=== PATIENT | female | born 1950 | race Caucasian/White ===

== ENCOUNTER 2016-05-04 14:13 | Inpatient (IN) | payer OTHER ==
[~2016-05-04] VITALS: Ht 160 cm; Wt 63.9 kg
[~2016-05-04 14:13] MED LIST: ALBUTEROL SULFATE; AZIT-14 PO; PRED20TA PO; SYMBICORT BC; TIOT18CA INH
[2016-05-04] MEDS ORDERED: SODIUM CHLORIDE FLUSH 10ML SYR IVF ONE (14:30)
[2016-05-04] MEDS ORDERED: CEFTRIAXONE PMX 1GM/50ML 50 ML IVPB ONE (14:30)
[2016-05-04 14:55] LABS: HEMOGLOBIN 10.6 g/dL (11.7-16.4)
[2016-05-04 15:04] LABS: BLOOD UREA NITROGEN 4 mg/dL (7-18)
[2016-05-04] MEDS ORDERED: CEFTRIAXONE PMX 1GM/50ML 50 ML ONE (15:04)
[2016-05-04] MEDS ORDERED: SODIUM CHLORIDE 0.9% 1,000 ML IV ONE (15:09)
[2016-05-04] MEDS ORDERED: MORPHINE SULFATE 4 MG/ML, 1ML IVPush PRN (16:30)
[2016-05-04] MEDS ORDERED: ENOXAPARIN 40 MG/0.4 ML SQ SCH (16:30)
[2016-05-04] MEDS ORDERED: LORazepam 2 MG/ML, 1ML IVPush PRN (16:30)
[2016-05-04] MEDS ORDERED: ONDANSETRON 2MG/ML, 2ML IVP PRN (16:30)
[2016-05-04] MEDS ORDERED: POLYETHYLENE GLYCOL 17 GM PACKET PO PRN (16:30)
[2016-05-04] MEDS ORDERED: ACETAMINOPHEN 325 MG TABLET PO PRN (16:30)
[2016-05-04] MEDS ORDERED: BISACODYL 10 MG SUPP PR PRN (16:30)
[2016-05-04] MEDS ORDERED: DOCUSATE 100 MG CAPSULE PO PRN (16:30)
[2016-05-04] MEDS ORDERED: ALBUTEROL/IPRATROPIUM 2.5MG/0.5MG, 3 ML ONE (16:33)
[2016-05-04 17:01] VITALS: BP 152/80
[2016-05-04] MEDS: HYDROcodone/APAP 5/325 TABLET PO PRN ×2 (17:24→23:06)
[2016-05-04 17:57] LABS: POTASSIUM,URINE RANDOM 11 mmol/L
[2016-05-04 19:39] VITALS: BP 129/82
[2016-05-04] MEDS: ALBUTEROL/IPRATROPIUM 2.5MG/0.5MG, 3 ML NPPB SCH (19:54)
[2016-05-04] MEDS: DOXYCYCLINE 100 MG in DEXTROSE 5% 250 ML IV SCH (21:04)
[2016-05-04] MEDS: NS + 20MEQ KCL 1,000 ML IV SCH (21:04)
[2016-05-05 01:08] VITALS: BP 104/65
[2016-05-05] MEDS: ALBUTEROL/IPRATROPIUM 2.5MG/0.5MG, 3 ML NPPB SCH ×6 (01:40→23:04)
[2016-05-05] MEDS ORDERED: ALBUTEROL/IPRATROPIUM 2.5MG/0.5MG, 3 ML NPPB PRN (03:30)
[2016-05-05] MEDS: HYDROcodone/APAP 5/325 TABLET PO PRN ×2 (03:39→08:15)
[2016-05-05 06:19] LABS: ASPARTATE AMINO TRANSFERASE 19 U/L (15-37); BLOOD UREA NITROGEN 6 mg/dL (7-18)
[2016-05-05] MEDS: methylPREDNISolone SOD SUCC 125 MG/2 ML IV SCH ×3 (06:29→22:27)
[2016-05-05] MEDS: NS + 20MEQ KCL 1,000 ML IV SCH ×2 (06:33→22:27)
[2016-05-05 06:59] VITALS: BP 100/65
[2016-05-05] MEDS: FOLIC ACID 1 MG TABLET PO SCH (08:16)
[2016-05-05] MEDS: MULTIVITAMIN 1 TABLET PO SCH (08:16)
[2016-05-05] MEDS: THIAMINE 100MG TABLET PO SCH (08:16)
[2016-05-05] MEDS: DOXYCYCLINE 100 MG in DEXTROSE 5% 250 ML IV SCH ×2 (08:20→22:27)
[2016-05-05] MEDS: FLUTICASONE/VILANTEROL 200-25MCG/INH INH SCH (09:00)
[2016-05-05] MEDS ORDERED: OMNIPAQUE 350 MG/ML, 75ML BOTTLE ONE (09:52)
[2016-05-05] MEDS ORDERED: PROPOFOL 10 MG/ML, 20ML ONE (10:35)
[2016-05-05] MEDS ORDERED: ONDANSETRON 2MG/ML, 2ML ONE (10:35)
[2016-05-05 12:45] VITALS: BP 125/79
[2016-05-05] MEDS ORDERED: BUPIVACAINE/PF 0.5% ONE (13:19)
[2016-05-05] MEDS ORDERED: BUPIVACAINE/PF 0.25% ONE (13:20)
[2016-05-05] MEDS ORDERED: BUPIVACAINE/PF-EPI 0.5% 1:200K ONE (15:44)
[2016-05-05] MEDS ORDERED: ROPIvacaine/PF 0.5%, 30 ML ONE (15:53)
[2016-05-05] MEDS ORDERED: FENTANYL PF 250 MCG/5ML ONE (16:52)
[2016-05-05] MEDS ORDERED: MIDAZOLAM 1 MG/ML, 2ML ONE (17:08)
[2016-05-05] MEDS ORDERED: FENTANYL PF 100 MCG/2ML ONE ×2 (17:08→18:31)
[2016-05-05] MEDS ORDERED: FENTANYL PF 100 MCG/2ML IV PRN (19:00)
[2016-05-05] MEDS ORDERED: OXYcodone 5 MG/5 ML ORAL.SOL UDC PO PRN (19:00)
[2016-05-05] MEDS ORDERED: HYDROmorphone 1 MG/ML, 1ML IV PRN (19:00)
[2016-05-05] MEDS ORDERED: ONDANSETRON 2MG/ML, 2ML IVPush PRN (19:00)
[2016-05-05] MEDS ORDERED: hydrALAzine 20 MG/ML, 1ML IV PRN (19:00)
[2016-05-05] MEDS ORDERED: LABETALOL 5MG/ML, 20ML IV PRN (19:00)
[2016-05-05] MEDS ORDERED: OXYcodone 5 MG/5 ML ORAL.SOL UDC ONE (19:22)
[2016-05-05 20:00] VITALS: BP 148/85
[2016-05-05] MEDS: CEFAZOLIN PMX 1GM/50ML 50 ML IVPB SCH (20:52)
[2016-05-06] MEDS: HYDROcodone/APAP 5/325 TABLET PO PRN ×6 (00:47→23:38)
[2016-05-06 01:42] VITALS: BP 125/61
[2016-05-06] MEDS: CEFAZOLIN PMX 1GM/50ML 50 ML IVPB SCH (04:57)
[2016-05-06 05:05] LABS: HEMOGLOBIN 8.6 g/dL (11.7-16.4)
[2016-05-06 05:17] LABS: BLOOD UREA NITROGEN 12 mg/dL (7-18)
[2016-05-06] MEDS: methylPREDNISolone SOD SUCC 125 MG/2 ML IV SCH (06:18)
[2016-05-06] MEDS: ALBUTEROL/IPRATROPIUM 2.5MG/0.5MG, 3 ML NPPB SCH ×4 (06:49→19:56)
[2016-05-06 07:14] VITALS: BP 152/78
[2016-05-06] MEDS: NS + 20MEQ KCL 1,000 ML IV SCH (08:00)
[2016-05-06] MEDS: DOXYCYCLINE 100 MG in DEXTROSE 5% 250 ML IV SCH (10:00)
[2016-05-06] MEDS ORDERED: ERGOCALCIFEROL 50,000 UNIT CAPSULE PO SCH (10:30)
[2016-05-06] MEDS: FLUTICASONE/VILANTEROL 200-25MCG/INH INH SCH (10:57)
[2016-05-06] MEDS: THIAMINE 100MG TABLET PO SCH (10:57)
[2016-05-06] MEDS: FOLIC ACID 1 MG TABLET PO SCH (10:57)
[2016-05-06] MEDS: MULTIVITAMIN 1 TABLET PO SCH (10:57)
[2016-05-06] MEDS: ENOXAPARIN 40 MG/0.4 ML SQ SCH (11:12)
[2016-05-06] MEDS: CYANOCOBALAMIN 1,000 MCG TABLET PO SCH (11:13)
[2016-05-06 13:21] VITALS: BP 106/66
[2016-05-06] MEDS: DOXYCYCLINE 100MG TABLET PO SCH (19:51)
[2016-05-06 20:00] VITALS: BP 157/78
[2016-05-07 01:07] VITALS: BP 135/76
[2016-05-07] MEDS: HYDROcodone/APAP 5/325 TABLET PO PRN ×4 (03:35→16:46)
[2016-05-07 05:41] LABS: HEMOGLOBIN 8.7 g/dL (11.7-16.4)
[2016-05-07 06:13] LABS: BLOOD UREA NITROGEN 10 mg/dL (7-18)
[2016-05-07] MEDS: ALBUTEROL/IPRATROPIUM 2.5MG/0.5MG, 3 ML NPPB SCH ×4 (06:42→19:08)
[2016-05-07 06:54] VITALS: BP 118/68
[2016-05-07] MEDS: THIAMINE 100MG TABLET PO SCH (07:51)
[2016-05-07] MEDS: CYANOCOBALAMIN 1,000 MCG TABLET PO SCH (07:51)
[2016-05-07] MEDS: DOXYCYCLINE 100MG TABLET PO SCH (07:52)
[2016-05-07] MEDS: MULTIVITAMIN 1 TABLET PO SCH (07:52)
[2016-05-07] MEDS: FLUTICASONE/VILANTEROL 200-25MCG/INH INH SCH (07:52)
[2016-05-07] MEDS: FOLIC ACID 1 MG TABLET PO SCH (07:52)
[2016-05-07] MEDS: ENOXAPARIN 40 MG/0.4 ML SQ SCH (11:25)
[2016-05-07 13:29] VITALS: BP 103/70
[2016-05-07] MEDS ORDERED: PRED20TA PO (13:54)
[2016-05-07] MEDS ORDERED: MULT1TAB60 PO (13:54)
[2016-05-07] MEDS ORDERED: ERGO500017 PO (13:54)
[2016-05-07] MEDS ORDERED: CYAN10005 PO (13:54)
[2016-05-07] MEDS ORDERED: HYDR-3240 PO (13:54)
[2016-05-07] MEDS ORDERED: ACET325T14 PO (13:54)
[2016-05-07] MEDS ORDERED: DOXY100T PO (13:54)
[2016-05-07] MEDS ORDERED: FOLI-17 PO (13:54)
[2016-05-07] MEDS ORDERED: THIA100T6 PO (13:54)
[2016-05-07 18:35] VITALS: BP 161/89
== END 2016-05-08 01:55 | DRG 493 ==
LOC: ED 15:14 → 4WST 15:15 → SUATTDRO 15:24 → ED 16:09
PROC: 0T9B70Z Drainage of Bladder with Drainage Device, Via Natural or Artificial Opening (ICD-10-PCS; 2016-05-04)
PROC: HZ34ZZZ Individual Counseling for Substance Abuse Treatment, Interpersonal (ICD-10-PCS; 2016-05-04)
PROC: HZ2ZZZZ Detoxification Services for Substance Abuse Treatment (ICD-10-PCS; 2016-05-04)
PROC: 0QSG3ZZ Reposition Right Tibia, Percutaneous Approach (ICD-10-PCS; 2016-05-05)
PROC: 0QSJ04Z Reposition Right Fibula with Internal Fixation Device, Open Approach (ICD-10-PCS; principal; 2016-05-05 15:30)
DX: S82.851A Displaced trimalleolar fracture of right lower leg, initial encounter for closed fracture (principal); J44.1 Chronic obstructive pulmonary disease with (acute) exacerbation; E87.1 Hypo-osmolality and hyponatremia; J96.10 Chronic respiratory failure, unspecified whether with hypoxia or hypercapnia; J45.909 Unspecified asthma, uncomplicated; F10.10 Alcohol abuse, uncomplicated; D64.9 Anemia, unspecified; W18.30XA Fall on same level, unspecified, initial encounter; M06.9 Rheumatoid arthritis, unspecified; E55.9 Vitamin D deficiency, unspecified; R91.1 Solitary pulmonary nodule; Z87.891 Personal history of nicotine dependence; Z88.2 Allergy status to sulfonamides; Z99.81 Dependence on supplemental oxygen; Z90.710 Acquired absence of both cervix and uterus; Z82.49 Family history of ischemic heart disease and other diseases of the circulatory system; Z80.41 Family history of malignant neoplasm of ovary; Z71.6 Tobacco abuse counseling; Z71.41 Alcohol abuse counseling and surveillance of alcoholic; E86.0 Dehydration
CPT/HCPCS: 29515; 36415; 70450; 71010; 71260; 76000; 80048; 80053; 80307; 81003; 82040; 82306; 82436; 82607; 83605; 83735; 83930; 84100; 84133; 84295; 84300; 84439; 84443; 85025; 87040; 87070; 87077; 87186; 87205; 93005; 94640; 96365; C1713; J0690; J0696; J1650; J2250; J2405; J2704; J2795; J3010; J3480; J3490; J7060; J7620; Q9967; J2060; J2930; J7030; J7512

== ENCOUNTER 2018-02-11 12:36 | Inpatient (IN) | payer MEDICARE ==
[~2018-02-11] VITALS: Ht 160 cm; Wt 64.1 kg
[~2018-02-11 12:36] MED LIST changes: +ACET325T14 PO; -AZIT-14 PO; +AZIT250T89 PO; +CYAN10005 PO; +DOXY100T PO; +ERGO500017 PO; +FOLI-17 PO; +HYDR-3240 PO; +MULT1TAB60 PO; +THIA100T67 PO
--- NOTE | 2018-02-11 12:45 | NUR ---
BIB AMBULANCE FOR SOB AND EDEMA FOR SEVERAL WEEKS, WORSENING TODAY, PT COMPLETED 5 DAYS OF TREATMENT WITH LASIX AND POTASSIUM FROM PCP THIS MORNING. "I JUST CAN'T BREATHE WELL, AND I'M COUGHING UP STUFF, I USE OXYGEN ALL THE TIME, 3L, AND MY LEGS AND STOMACH ARE JUST GETTING MORE SWOLLEN." CONT PULSE OX, BP, CARDIAC MONITORS APPLIED. ST ON MONITOR. PT HYPOTENSIVE, REPORTS "MY BLOOD PRESSURE IS ALWAYS LOW." DR. CHATTERJEE AT BEDSIDE FOR EVALUATION, AWAITING ORDERS. PITTING EDEMA NOTED TO BLE. ABD FIRM AND DISTENDED, BOWEL SOUNDS ACTIVE. ASSESSMENT COMPLETED. A&OX4. FALL PRECAUTIONS IN PLACE. SIDE RAILS UPX2. WARM BLANKET PROVIDED FOR COMFORT.
[2018-02-11] MEDS ORDERED: SODIUM CHLORIDE FLUSH 10ML SYR IVF ONE (13:00)
[2018-02-11] MEDS ORDERED: PLEASE ENTER HEIGHT AND WEIGHT MC SCH (13:00)
--- NOTE | 2018-02-11 13:10 | NUR ---
DISCUSSED BP WITH DR. CHATTERJEE, AWARE, NO NEW ORDERS RECEIVED. AWAITING LAB RESULTS THEN MD TO RE-ASSESS PT.
[2018-02-11 13:20] LABS: MEAN CORPUSCULAR HEMOGLOBIN 22.4 pg (27.0-34.8); MEAN CORPUSCULAR HGB CONC 30.4 g/dL (32.4-35.8); MEAN CORPUSCULAR VOLUME 73.4 fL (80-100); MEAN PLATELET VOLUME 8.1 fL (7.4-10.4); PLATELET COUNT 749 x10^3/uL (130-400); RED BLOOD COUNT 3.24 x10^6/uL (3.82-5.3); RED CELL DISTRIBUTION WIDTH 18.9 % (9.6-15.2)
[2018-02-11 13:25] LABS: INTERNATIONAL NORMALIZED RATIO 1.26 (0.93-1.1); PROTHROMBIN TIME 13.2 Seconds (9.6-11.5)
[2018-02-11 13:26] LABS: ALANINE AMINOTRANSFERASE 17 U/L (12-78); ALBUMIN 1.4 g/dL (3.4-5.0); ANION GAP 3 mmol/L (5-15); CALCIUM 7.7 mg/dL (8.5-10.1); CHLORIDE 96 mmol/L (98-107)
--- NOTE | 2018-02-11 13:29 | NUR ---
BEDSIDE REPORT AND CARE TO ARNOL GOODEN AT THIS TIME.
[2018-02-11 13:30] LABS: ALKALINE PHOSPHATASE 124 U/L (45-117); BILIRUBIN,TOTAL 0.2 mg/dL (0.2-1.0); CREATININE 0.58 mg/dL (0.55-1.02); TOTAL PROTEIN 8.8 g/dL (6.4-8.2); TROPONIN I < 0.015 ng/mL (0.000-0.045)
[2018-02-11] MEDS ORDERED: FLUT1AER INH (13:46)
[2018-02-11] MEDS ORDERED: ALBU8.5H8 INH (13:46)
[2018-02-11] MEDS ORDERED: UMEC62.5 INH (13:46)
[2018-02-11] MEDS ORDERED: OMNIPAQUE 350 MG/ML, 100ML BOTTLE ONE (14:00)
[2018-02-11] MEDS ORDERED: FUROSEMIDE 20 MG/2 ML IV ONE (14:00)
[2018-02-11] MEDS ORDERED: FUROSEMIDE 20 MG/2 ML ONE (14:14)
--- NOTE | 2018-02-11 14:18 | NUR ---
[facility] MEDIC[facility] PER APR.
--- NOTE | 2018-02-11 14:19 | NUR ---
ERP DR. PRATT AWARE OF PT WBC 18.4
--- NOTE | 2018-02-11 14:44 | NUR ---
ERP AT BEDSIDE TO DISCUSS POC AND ADMIT.
--- NOTE | 2018-02-11 14:45 | NUR ---
PER ERP DR. PRATT NO NEED FOR BC X2 OR ANTX AT THIS TIME.
[2018-02-11 14:46] LABS: BASOPHILS % (AUTO) 0 % (0-1); EOSINOPHILS # (AUTO) 0.02 x10^3/uL (0-0.4); EOSINOPHILS % (AUTO) 0 % (1-7); LYMPHOCYTES # (AUTO) 1.61 x10^3/uL (1-3.4); LYMPHOCYTES % (AUTO) 9 % (22-44); MD MORPH REVIEW ONLY; MONOCYTES # (AUTO) 2.66 x10^3/uL (0.2-0.8); MONOCYTES % (AUTO) 14 % (2-9); NEUTROPHILS # (AUTO) 14.14 x10^3/uL (1.8-6.8); NEUTROPHILS % (AUTO) 77 % (42-75)
[2018-02-11 14:47] LABS: ANISOCYTOSIS 1+; HYPOCHROMIA 1+; MICROCYTOSIS 1+; POLYCHROMASIA 1+; ROULEAUX 1+
[2018-02-11 14:48] LABS: <PLATELET ESTIMATE> INCREASED; <PLT MORPHOLOGY> NORMAL PLT MORPH
[2018-02-11 15:58] LABS: MICROSCOPIC AUTO
--- NOTE | 2018-02-11 15:59 | NUR ---
REPORT GIVEN TO LAVERNE SAENZ RN. ALL QUESTIONS ANSWERED. AWAITING PT TRANSPORT.
[2018-02-11 16:02] LABS: CULTURE INDICATED? YES
--- NOTE | 2018-02-11 16:27 | NUR ---
PT CHANGED TO CARD TELE. AWAITING NEW BED ASSIGNMENT AND RN.
[2018-02-11] MEDS ORDERED: LABETALOL 5MG/ML, 20ML IVPush PRN (16:30)
[2018-02-11] MEDS ORDERED: POLYETHYLENE GLYCOL 17 GM PACKET PO PRN (16:30)
[2018-02-11] MEDS ORDERED: ONDANSETRON ODT 4 MG PO PRN (16:30)
[2018-02-11] MEDS ORDERED: ONDANSETRON 2MG/ML, 2ML IVPush PRN (16:30)
--- NOTE | 2018-02-11 16:32 | NUR ---
SPOKE W/ CARDIOVASCULAR. THEY WILL BE DOWN TO DO STAT ECHO PER DR. REGALADO REQUEST. PER DR. FABRICIO MAURICE FOR PT TO HAVE CARDIAC DIET. DIET TRAY ORDERED.
--- NOTE | 2018-02-11 16:44 | NUR ---
ECHO AT BEDSIDE.
[2018-02-11 16:55] LABS: HEMOGLOBIN A1C 5.4 % (4.2-6.3)
[2018-02-11 16:57] LABS: CHOL/HDL RATIO 8.1; FREE T4 (FREE THYROXINE) 1.13 ng/dL (0.76-1.46); LDL/HDL RATIO 5.1 (0.5-3.0); THYROID STIMULATING HORMONE 2.2 mIU/L (0.358-3.740)
--- NOTE | 2018-02-11 17:23 | NUR ---
PT PROVIDED W/ CARDIAC DINNER TRAY.
--- NOTE | 2018-02-11 17:37 | NUR ---
YELLOW SLIP SENT TO RX FOR ALBUMIN AND BANANA BAG.
[2018-02-11] MEDS ORDERED: PIPERACILLIN/TAZO/PMX 3.375GM 50 ML ONE (17:38)
[2018-02-11] MEDS ORDERED: methylPREDNISolone SOD SUCC 125 MG/2 ML ONE (17:38)
[2018-02-11] MEDS: PIPERACILLIN/TAZO/PMX 3.375GM 50 ML IV SCH (17:49)
[2018-02-11] MEDS: methylPREDNISolone SOD SUCC 125 MG/2 ML IVPush SCH (17:49)
--- NOTE | 2018-02-11 17:50 | NUR ---
BC X2 DRAWN PRIOR TO START OF IV ANTX.
[2018-02-11] MEDS ORDERED: ERGOCALCIFEROL 50,000 UNIT CAPSULE PO SCH (18:00)
[2018-02-11] MEDS ORDERED: THIAMINE 100MG TABLET PO SCH (18:00)
[2018-02-11] MEDS ORDERED: FOLIC ACID 1 MG TABLET PO SCH (18:00)
[2018-02-11] MEDS ORDERED: POTASSIUM CHLORIDE 20 MEQ, MAGNESIUM SULFATE 1 GM, FOLIC ACID 1 MG, THIAMINE 200 MG, MV... IV SCH (18:00)
[2018-02-11] MEDS: ALBUMIN HUMAN 25% 100 ML IV SCH (18:26)
--- NOTE | 2018-02-11 18:36 | NUR ---
PT RESTING ON GURNEY. NADN. PÉREZ.
--- NOTE | 2018-02-11 18:50 | NUR ---
REPORT GIVEN TO LAVERNE MERAZ. ALL QUESTIONS ANSWERED. AWAITING PT TRANSPORT.
[2018-02-11] MEDS: ALBUTEROL/IPRATROPIUM 2.5MG/0.5MG, 3 ML HHN SCH (19:30)
[2018-02-11 19:40] VITALS: BP 109/62
[2018-02-11] MEDS ORDERED: BUDESONIDE 0.5 MG/2 ML INHA NPPB SCH (21:00)
[2018-02-11] MEDS: BUDESONIDE 0.5 MG/2 ML INHA NPPB SCH (21:00)
[2018-02-11] MEDS ORDERED: ALBUTEROL/IPRATROPIUM 2.5MG/0.5MG, 3 ML NPPB PRN (21:00)
[2018-02-11] MEDS ORDERED: ALBUTEROL/IPRATROPIUM 2.5MG/0.5MG, 3 ML NPPB SCH (21:00)
[2018-02-11] MEDS: MULTIVITAMIN 1 TABLET PO SCH (21:10)
[2018-02-11] MEDS: DIPHENHYDRAMINE 50 MG CAPSULE PO PRN (22:35)
[2018-02-11] MEDS: NICOTINE 21 MG/24 HR PATCH.TD24 TD SCH (22:35)
[2018-02-12] VITALS (11 sets, daily range): BP systolic 94–122; BP diastolic 61–76
[2018-02-12] MEDS: methylPREDNISolone SOD SUCC 125 MG/2 ML IVPush SCH ×4 (00:19→18:19)
[2018-02-12] MEDS: PIPERACILLIN/TAZO/PMX 3.375GM 50 ML IV SCH ×4 (00:19→18:19)
[2018-02-12] MEDS: ALBUTEROL/IPRATROPIUM 2.5MG/0.5MG, 3 ML HHN SCH ×5 (01:30→20:07)
[2018-02-12] MEDS: ALBUMIN HUMAN 25% 100 ML IV SCH ×4 (01:41→23:07)
[2018-02-12 05:13] LABS: ANION GAP 4 mmol/L (5-15); CALCIUM 7.9 mg/dL (8.5-10.1); CHLORIDE 97 mmol/L (98-107)
[2018-02-12 05:18] LABS: ALANINE AMINOTRANSFERASE 17 U/L (12-78); ALKALINE PHOSPHATASE 105 U/L (45-117); BILIRUBIN,TOTAL 0.7 mg/dL (0.2-1.0); CREATININE 0.66 mg/dL (0.55-1.02); TOTAL PROTEIN 8.4 g/dL (6.4-8.2)
[2018-02-12 05:22] LABS: MEAN CORPUSCULAR HEMOGLOBIN 22.6 pg (27.0-34.8); MEAN CORPUSCULAR HGB CONC 31.1 g/dL (32.4-35.8); MEAN CORPUSCULAR VOLUME 72.6 fL (80-100); MEAN PLATELET VOLUME 8.3 fL (7.4-10.4); PLATELET COUNT 667 x10^3/uL (130-400); RED BLOOD COUNT 2.87 x10^6/uL (3.82-5.3)
[2018-02-12 06:10] LABS: ANISOCYTOSIS 1+; BASOPHILS % (AUTO) 0 % (0-1); EOSINOPHILS # (AUTO) 0.25 x10^3/uL (0-0.4); EOSINOPHILS % (AUTO) 1 % (1-7); HYPOCHROMIA 1+; LYMPHOCYTES % (AUTO) 11 % (22-44); MD MORPH REVIEW ONLY; MICROCYTOSIS 1+; MONOCYTES # (AUTO) 0.74 x10^3/uL (0.2-0.8); MONOCYTES % (AUTO) 4 % (2-9); NEUTROPHILS # (AUTO) 14.61 x10^3/uL (1.8-6.8); NEUTROPHILS % (AUTO) 83 % (42-75); POLYCHROMASIA 1+; TARGET CELLS 1+
[2018-02-12 06:11] LABS: <PLATELET ESTIMATE> INCREASED; <PLT MORPHOLOGY> NORMAL PLT MORPH
[2018-02-12] MEDS ORDERED: POTASSIUM CHLORIDE 20 MEQ, MAGNESIUM SULFATE 1 GM, FOLIC ACID 1 MG, THIAMINE 200 MG, MV... IV SCH (07:30)
[2018-02-12] MEDS: BUDESONIDE 0.5 MG/2 ML INHA NPPB SCH ×2 (07:33→20:07)
[2018-02-12] MEDS ORDERED: TEMPLATE NON-FORMULARY MED. (Tiotropium Bromide** (Spiriva**) 18 MCG) INH SCH (09:00)
[2018-02-12] MEDS ORDERED: FLUTICASONE/VILANTEROL 100-25MCG/INH INH SCH (09:00)
[2018-02-12] MEDS ORDERED: OMNIPAQUE 350 MG/ML, 100ML BOTTLE ONE (10:05)
[2018-02-12] MEDS: PANTOPRAZOLE 40 MG IV IVPush SCH (10:31)
[2018-02-12] MEDS: SENNA/DOCUSATE TABLET PO SCH (10:34)
[2018-02-12] MEDS: NICOTINE 21 MG/24 HR PATCH.TD24 TD SCH (10:34)
[2018-02-12] MEDS ORDERED: NALOXONE 1 MG/ML, 2ML ONE (10:58)
[2018-02-12] MEDS ORDERED: FENTANYL PF 100 MCG/2ML ONE (10:58)
[2018-02-12] MEDS ORDERED: LIDOCAINE-MPF 1%, 5ML ONE ×2 (11:02→11:13)
[2018-02-12 14:21] LABS: OCCULT BLOOD NEGATIVE (NEGATIVE)
[2018-02-12] MEDS: MULTIVITAMIN 1 TABLET PO SCH (18:19)
[2018-02-13 00:04] VITALS: BP 129/78
[2018-02-13] MEDS: PIPERACILLIN/TAZO/PMX 3.375GM 50 ML IV SCH ×5 (00:07→23:57)
[2018-02-13] MEDS: DIPHENHYDRAMINE 50 MG CAPSULE PO PRN (00:08)
[2018-02-13] MEDS: methylPREDNISolone SOD SUCC 125 MG/2 ML IVPush SCH ×2 (00:08→06:02)
[2018-02-13 03:07] VITALS: BP 151/75
[2018-02-13 03:55] LABS: MEAN CORPUSCULAR HEMOGLOBIN 25.1 pg (27.0-34.8); MEAN CORPUSCULAR HGB CONC 32.1 g/dL (32.4-35.8); MEAN CORPUSCULAR VOLUME 78.1 fL (80-100); MEAN PLATELET VOLUME 8.1 fL (7.4-10.4); PLATELET COUNT 522 x10^3/uL (130-400); RED BLOOD COUNT 3.45 x10^6/uL (3.82-5.3); RED CELL DISTRIBUTION WIDTH 20.5 % (9.6-15.2)
[2018-02-13 04:04] LABS: ALANINE AMINOTRANSFERASE 15 U/L (12-78); ALBUMIN 2.7 g/dL (3.4-5.0); ANION GAP 4 mmol/L (5-15); CALCIUM 8.2 mg/dL (8.5-10.1); CHLORIDE 98 mmol/L (98-107)
[2018-02-13 04:07] LABS: ALKALINE PHOSPHATASE 86 U/L (45-117); BILIRUBIN,TOTAL 0.5 mg/dL (0.2-1.0); CREATININE 0.66 mg/dL (0.55-1.02); TOTAL PROTEIN 8.5 g/dL (6.4-8.2)
[2018-02-13 04:11] LABS: O2 FLOW 3 L/min
[2018-02-13 04:17] LABS: MD YES
[2018-02-13 04:18] LABS: ANISOCYTOSIS 1+; BAND#(MANUAL) 0.89 x10^3/uL; BANDS%(MANUAL) 3 % (0-7); HYPOCHROMIA 1+; LYMPH#(MANUAL) 1.78 x10^3/uL (1-3.4); LYMPHS% (MANUAL) 6 % (22-44); MICROCYTOSIS 1+; MONOS#(MANUAL) 2.96 x10^3/uL (0.3-2.7); MONOS% (MANUAL) 10 % (2-9); POLYCHROMASIA 1+; SEG#(MANUAL) 23.98 x10^3/uL (1.8-6.8); SEGS% (MANUAL) 81 % (42-75)
[2018-02-13 04:19] LABS: TARGET CELLS 1+
[2018-02-13 04:21] LABS: <PLATELET ESTIMATE> INCREASED; <PLT MORPHOLOGY> NORMAL PLT MORPH
[2018-02-13] MEDS ORDERED: FUROSEMIDE 20 MG/2 ML IV ONE (05:00)
[2018-02-13] MEDS ORDERED: POTASSIUM CHLORIDE 20 MEQ TAB.ER.PRT PO ONE (05:00)
[2018-02-13 05:14] VITALS: BP 128/77
[2018-02-13] MEDS: ALBUMIN HUMAN 25% 100 ML IV SCH (05:17)
[2018-02-13 07:59] VITALS: BP 129/74
[2018-02-13] MEDS: PANTOPRAZOLE 40 MG IV IVPush SCH (09:49)
[2018-02-13] MEDS: FUROSEMIDE 20 MG/2 ML IV SCH (09:50)
[2018-02-13] MEDS: NICOTINE 21 MG/24 HR PATCH.TD24 TD SCH (09:51)
[2018-02-13] MEDS: SENNA/DOCUSATE TABLET PO SCH (09:51)
[2018-02-13] MEDS: ALBUTEROL/IPRATROPIUM 2.5MG/0.5MG, 3 ML HHN SCH ×4 (09:55→20:23)
[2018-02-13] MEDS: BUDESONIDE 0.5 MG/2 ML INHA NPPB SCH ×2 (09:55→20:23)
[2018-02-13] MEDS: FOLIC ACID 1 MG TABLET PO SCH (12:00)
[2018-02-13] MEDS: THIAMINE 100MG TABLET PO SCH (12:01)
[2018-02-13 14:45] VITALS: BP 123/70
[2018-02-13] MEDS: MULTIVITAMIN 1 TABLET PO SCH (17:48)
[2018-02-13 20:40] VITALS: BP 151/82
[2018-02-13] MEDS: HYDROcodone/APAP 5/325 TABLET PO PRN (21:21)
[2018-02-14 01:27] VITALS: BP 118/69
[2018-02-14] MEDS: ALBUTEROL/IPRATROPIUM 2.5MG/0.5MG, 3 ML HHN SCH ×4 (03:10→18:35)
[2018-02-14] MEDS: PIPERACILLIN/TAZO/PMX 3.375GM 50 ML IV SCH ×2 (06:27→10:50)
[2018-02-14 07:22] VITALS: BP 110/67
[2018-02-14] MEDS: BUDESONIDE 0.5 MG/2 ML INHA NPPB SCH ×3 (07:40→18:45)
[2018-02-14 08:46] LABS: MEAN CORPUSCULAR HEMOGLOBIN 24.6 pg (27.0-34.8); MEAN CORPUSCULAR HGB CONC 31.4 g/dL (32.4-35.8); MEAN CORPUSCULAR VOLUME 78.4 fL (80-100); PLATELET COUNT 563 x10^3/uL (130-400); RED BLOOD COUNT 3.96 x10^6/uL (3.82-5.3)
[2018-02-14 08:53] LABS: ALANINE AMINOTRANSFERASE 13 U/L (12-78); ALBUMIN 2.5 g/dL (3.4-5.0); ANION GAP 4 mmol/L (5-15); CALCIUM 8.3 mg/dL (8.5-10.1); CHLORIDE 99 mmol/L (98-107); CREATININE 0.53 mg/dL (0.55-1.02)
[2018-02-14 08:55] LABS: ALKALINE PHOSPHATASE 84 U/L (45-117); BILIRUBIN,TOTAL 0.6 mg/dL (0.2-1.0); TOTAL PROTEIN 8.2 g/dL (6.4-8.2)
[2018-02-14] MEDS: SENNA/DOCUSATE TABLET PO SCH (09:00)
[2018-02-14 09:10] LABS: BASOPHILS # (AUTO) 0.07 x10^3/uL (0-0.1); BASOPHILS % (AUTO) 0 % (0-1); EOSINOPHILS # (AUTO) 0.25 x10^3/uL (0-0.4); EOSINOPHILS % (AUTO) 1 % (1-7); LYMPHOCYTES # (AUTO) 2.56 x10^3/uL (1-3.4); LYMPHOCYTES % (AUTO) 9 % (22-44); MD SCAN; MONOCYTES # (AUTO) 4.41 x10^3/uL (0.2-0.8); MONOCYTES % (AUTO) 16 % (2-9); NEUTROPHILS % (AUTO) 73 % (42-75)
[2018-02-14] MEDS: THIAMINE 100MG TABLET PO SCH (09:24)
[2018-02-14] MEDS: FOLIC ACID 1 MG TABLET PO SCH (09:24)
[2018-02-14] MEDS: FUROSEMIDE 20 MG/2 ML IV SCH (09:25)
[2018-02-14] MEDS: PANTOPRAZOLE 40 MG IV IVPush SCH (09:25)
[2018-02-14] MEDS: NICOTINE 21 MG/24 HR PATCH.TD24 TD SCH (09:26)
[2018-02-14] MEDS: HYDROcodone/APAP 5/325 TABLET PO PRN ×2 (10:49→18:33)
[2018-02-14 12:54] VITALS: BP 168/78
[2018-02-14] MEDS: MULTIVITAMIN 1 TABLET PO SCH (18:33)
[2018-02-14] MEDS: PIPERACILLIN/TAZO 3.375 GM in DEXTROSE 5% 50 ML IV SCH (18:37)
[2018-02-14 20:21] VITALS: BP 119/69
[2018-02-15] MEDS: ALBUTEROL/IPRATROPIUM 2.5MG/0.5MG, 3 ML HHN SCH ×5 (00:25→20:41)
[2018-02-15] MEDS: PIPERACILLIN/TAZO 3.375 GM in DEXTROSE 5% 50 ML IV SCH ×4 (00:27→18:03)
[2018-02-15] MEDS: HYDROcodone/APAP 5/325 TABLET PO PRN ×3 (01:01→20:52)
[2018-02-15 03:59] VITALS: BP 109/72
[2018-02-15 04:59] VITALS: BP 109/72
[2018-02-15 05:17] LABS: MEAN CORPUSCULAR HEMOGLOBIN 24.7 pg (27.0-34.8); MEAN CORPUSCULAR HGB CONC 31.5 g/dL (32.4-35.8); MEAN CORPUSCULAR VOLUME 78.6 fL (80-100); MEAN PLATELET VOLUME 8.3 fL (7.4-10.4); PLATELET COUNT 485 x10^3/uL (130-400); RED BLOOD COUNT 3.64 x10^6/uL (3.82-5.3); RED CELL DISTRIBUTION WIDTH 22.8 % (9.6-15.2)
[2018-02-15 05:25] LABS: ALBUMIN 2.2 g/dL (3.4-5.0); ANION GAP 2 mmol/L (5-15); CALCIUM 8.1 mg/dL (8.5-10.1); CHLORIDE 98 mmol/L (98-107)
[2018-02-15 05:47] LABS: ALANINE AMINOTRANSFERASE 12 U/L (12-78); ALKALINE PHOSPHATASE 72 U/L (45-117); BILIRUBIN,TOTAL 0.5 mg/dL (0.2-1.0); CREATININE 0.56 mg/dL (0.55-1.02); TOTAL PROTEIN 7.4 g/dL (6.4-8.2)
[2018-02-15 06:00] LABS: BASOPHILS # (AUTO) 0.03 x10^3/uL (0-0.1); BASOPHILS % (AUTO) 0 % (0-1); EOSINOPHILS # (AUTO) 0.38 x10^3/uL (0-0.4); EOSINOPHILS % (AUTO) 2 % (1-7); LYMPHOCYTES # (AUTO) 2.43 x10^3/uL (1-3.4); LYMPHOCYTES % (AUTO) 10 % (22-44); MD SCAN; MONOCYTES # (AUTO) 3.69 x10^3/uL (0.2-0.8); MONOCYTES % (AUTO) 15 % (2-9); NEUTROPHILS # (AUTO) 17.53 x10^3/uL (1.8-6.8); NEUTROPHILS % (AUTO) 73 % (42-75)
[2018-02-15 08:23] VITALS: BP 105/62
[2018-02-15] MEDS: THIAMINE 100MG TABLET PO SCH (09:09)
[2018-02-15] MEDS: FOLIC ACID 1 MG TABLET PO SCH (09:09)
[2018-02-15] MEDS: SENNA/DOCUSATE TABLET PO SCH (09:09)
[2018-02-15] MEDS: NICOTINE 21 MG/24 HR PATCH.TD24 TD SCH (09:09)
[2018-02-15] MEDS: PANTOPRAZOLE 40 MG IV IVPush SCH (09:09)
[2018-02-15] MEDS: FUROSEMIDE 20 MG/2 ML IV SCH (09:10)
[2018-02-15] MEDS ORDERED: POTASSIUM CHLORIDE 20 MEQ TAB.ER.PRT PO ONE ×2 (09:30→13:30)
[2018-02-15 16:52] VITALS: BP 116/78
[2018-02-15] MEDS: MULTIVITAMIN 1 TABLET PO SCH (18:03)
[2018-02-15 18:57] VITALS: BP 124/73
[2018-02-16] MEDS: PIPERACILLIN/TAZO 3.375 GM in DEXTROSE 5% 50 ML IV SCH ×4 (00:04→18:11)
[2018-02-16 00:13] VITALS: BP 132/76
[2018-02-16] MEDS: ALBUTEROL/IPRATROPIUM 2.5MG/0.5MG, 3 ML HHN SCH ×5 (03:02→21:03)
[2018-02-16 05:16] LABS: MEAN CORPUSCULAR HEMOGLOBIN 24.8 pg (27.0-34.8); MEAN CORPUSCULAR HGB CONC 31.1 g/dL (32.4-35.8); MEAN CORPUSCULAR VOLUME 79.9 fL (80-100); MEAN PLATELET VOLUME 8.8 fL (7.4-10.4); PLATELET COUNT 476 x10^3/uL (130-400); RED BLOOD COUNT 3.71 x10^6/uL (3.82-5.3); RED CELL DISTRIBUTION WIDTH 23.8 % (9.6-15.2)
[2018-02-16 05:27] LABS: CHLORIDE 100 mmol/L (98-107)
[2018-02-16 05:40] LABS: ALBUMIN 2.1 g/dL (3.4-5.0); ANION GAP 5 mmol/L (5-15); CREATININE 0.44 mg/dL (0.55-1.02)
[2018-02-16 05:42] LABS: MD YES
[2018-02-16 05:44] LABS: ANISOCYTOSIS 1+; LYMPH#(MANUAL) 3.78 x10^3/uL (1-3.4); LYMPHS% (MANUAL) 14 % (22-44); MICROCYTOSIS 1+; MONOS#(MANUAL) 1.89 x10^3/uL (0.3-2.7); MONOS% (MANUAL) 7 % (2-9); POLYCHROMASIA 1+; SEG#(MANUAL) 21.33 x10^3/uL (1.8-6.8); SEGS% (MANUAL) 79 % (42-75)
[2018-02-16 05:45] LABS: <PLATELET ESTIMATE> INCREASED; <PLT MORPHOLOGY> NORMAL PLT MORPH; TARGET CELLS 1+
[2018-02-16 05:50] LABS: HYPOCHROMIA 1+
[2018-02-16 06:57] VITALS: BP 99/63
[2018-02-16] MEDS: PANTOPRAZOLE 40 MG IV IVPush SCH (07:57)
[2018-02-16] MEDS: SENNA/DOCUSATE TABLET PO SCH (07:58)
[2018-02-16] MEDS: THIAMINE 100MG TABLET PO SCH (07:58)
[2018-02-16] MEDS: FOLIC ACID 1 MG TABLET PO SCH (07:58)
[2018-02-16] MEDS: NICOTINE 21 MG/24 HR PATCH.TD24 TD SCH (07:58)
[2018-02-16] MEDS: FUROSEMIDE 20 MG/2 ML IV SCH (07:58)
[2018-02-16] MEDS: HYDROcodone/APAP 5/325 TABLET PO PRN ×2 (08:56→21:11)
[2018-02-16 12:01] VITALS: BP 109/73
[2018-02-16] MEDS: MULTIVITAMIN 1 TABLET PO SCH (18:10)
[2018-02-16 19:25] VITALS: BP 116/69
[2018-02-17] MEDS: PIPERACILLIN/TAZO 3.375 GM in DEXTROSE 5% 50 ML IV SCH ×2 (00:08→05:27)
[2018-02-17 01:33] VITALS: BP 111/74
[2018-02-17] MEDS: HYDROcodone/APAP 5/325 TABLET PO PRN ×4 (01:57→21:31)
[2018-02-17] MEDS: ALBUTEROL/IPRATROPIUM 2.5MG/0.5MG, 3 ML HHN SCH ×4 (03:00→21:30)
[2018-02-17 06:10] LABS: MEAN CORPUSCULAR HEMOGLOBIN 24.9 pg (27.0-34.8); MEAN CORPUSCULAR HGB CONC 31.4 g/dL (32.4-35.8); MEAN CORPUSCULAR VOLUME 79.1 fL (80-100); MEAN PLATELET VOLUME 8.8 fL (7.4-10.4); PLATELET COUNT 466 x10^3/uL (130-400); RED BLOOD COUNT 3.63 x10^6/uL (3.82-5.3); RED CELL DISTRIBUTION WIDTH 24.1 % (9.6-15.2)
[2018-02-17 06:11] LABS: ALBUMIN 1.9 g/dL (3.4-5.0); ANION GAP 6 mmol/L (5-15); CALCIUM 7.9 mg/dL (8.5-10.1); CHLORIDE 100 mmol/L (98-107); CREATININE 0.37 mg/dL (0.55-1.02)
[2018-02-17 06:28] LABS: BASOPHILS % (AUTO) 0 % (0-1); EOSINOPHILS # (AUTO) 0.04 x10^3/uL (0-0.4); EOSINOPHILS % (AUTO) 0 % (1-7); LYMPHOCYTES # (AUTO) 2.78 x10^3/uL (1-3.4); LYMPHOCYTES % (AUTO) 11 % (22-44); MD SCAN; MONOCYTES # (AUTO) 3.39 x10^3/uL (0.2-0.8); MONOCYTES % (AUTO) 13 % (2-9); NEUTROPHILS % (AUTO) 76 % (42-75)
[2018-02-17 08:20] VITALS: BP 109/71
[2018-02-17] MEDS: FOLIC ACID 1 MG TABLET PO SCH (08:28)
[2018-02-17] MEDS: SENNA/DOCUSATE TABLET PO SCH (08:28)
[2018-02-17] MEDS: THIAMINE 100MG TABLET PO SCH (08:28)
[2018-02-17] MEDS: NICOTINE 21 MG/24 HR PATCH.TD24 TD SCH (08:28)
[2018-02-17] MEDS: PANTOPRAZOLE 40 MG IV IVPush SCH (08:29)
[2018-02-17] MEDS: FUROSEMIDE 20 MG/2 ML IV SCH ×2 (08:29→08:34)
[2018-02-17] MEDS ORDERED: POTASSIUM CHLORIDE 20 MEQ TAB.ER.PRT PO ONE ×2 (08:30→11:30)
[2018-02-17] MEDS: DOXYCYCLINE 100MG TABLET PO SCH ×2 (12:35→20:10)
[2018-02-17] MEDS: CEFTRIAXONE PMX 1GM/50ML 50 ML IV SCH (12:35)
[2018-02-17 14:46] VITALS: BP 117/79
[2018-02-17] MEDS: MULTIVITAMIN 1 TABLET PO SCH (16:59)
[2018-02-17 18:47] VITALS: BP 103/65
[2018-02-18 02:00] VITALS: BP 105/70
[2018-02-18] MEDS: HYDROcodone/APAP 5/325 TABLET PO PRN ×3 (02:31→14:39)
[2018-02-18] MEDS: ALBUTEROL/IPRATROPIUM 2.5MG/0.5MG, 3 ML HHN SCH ×3 (04:00→14:06)
[2018-02-18 04:37] LABS: MEAN CORPUSCULAR HEMOGLOBIN 24.5 pg (27.0-34.8); MEAN PLATELET VOLUME 8.9 fL (7.4-10.4); PLATELET COUNT 485 x10^3/uL (130-400); RED BLOOD COUNT 3.64 x10^6/uL (3.82-5.3); RED CELL DISTRIBUTION WIDTH 23.9 % (9.6-15.2)
[2018-02-18 04:50] LABS: ALANINE AMINOTRANSFERASE 12 U/L (12-78); ALBUMIN 1.8 g/dL (3.4-5.0); ANION GAP 3 mmol/L (5-15); CALCIUM 7.8 mg/dL (8.5-10.1); CHLORIDE 101 mmol/L (98-107); CREATININE 0.38 mg/dL (0.55-1.02)
[2018-02-18 04:53] LABS: ALKALINE PHOSPHATASE 80 U/L (45-117); BILIRUBIN,TOTAL 0.9 mg/dL (0.2-1.0)
[2018-02-18 06:00] LABS: BASOPHILS # (AUTO) 0.04 x10^3/uL (0-0.1); BASOPHILS % (AUTO) 0 % (0-1); EOSINOPHILS # (AUTO) 0.07 x10^3/uL (0-0.4); EOSINOPHILS % (AUTO) 0 % (1-7); LYMPHOCYTES % (AUTO) 9 % (22-44); MD SCAN; MONOCYTES # (AUTO) 2.91 x10^3/uL (0.2-0.8); MONOCYTES % (AUTO) 13 % (2-9); NEUTROPHILS % (AUTO) 78 % (42-75)
[2018-02-18] MEDS ORDERED: PANTOPROZOLE 40MG TABLET PO SCH (07:30)
[2018-02-18] MEDS: DOXYCYCLINE 100MG TABLET PO SCH (08:31)
[2018-02-18] MEDS: NICOTINE 21 MG/24 HR PATCH.TD24 TD SCH (08:32)
[2018-02-18] MEDS: FUROSEMIDE 20 MG/2 ML IV SCH (08:32)
[2018-02-18] MEDS: FOLIC ACID 1 MG TABLET PO SCH (08:32)
[2018-02-18] MEDS: SENNA/DOCUSATE TABLET PO SCH (08:32)
[2018-02-18] MEDS: THIAMINE 100MG TABLET PO SCH (08:32)
[2018-02-18 08:47] VITALS: BP 129/74
[2018-02-18] MEDS ORDERED: DOXY100T PO (11:39)
[2018-02-18] MEDS ORDERED: CEFD300C37 PO (11:39)
[2018-02-18] MEDS: CEFTRIAXONE PMX 1GM/50ML 50 ML IV SCH (12:00)
== END 2018-02-18 14:52 | disposition hospice, home (50) | DRG 853 ==
LOC: ED 15:13 → EDIP 15:14 → ED 15:15 → 5SO 19:02 → 3NW 02-15 16:43
PROVIDERS: ADMIT Hospitalist; ATTEND Hospitalist
PROC: 0YB53ZX Excision of Right Inguinal Region, Percutaneous Approach, Diagnostic (ICD-10-PCS; principal; 2018-02-12)
PROC: 30233N1 Transfusion of Nonautologous Red Blood Cells into Peripheral Vein, Percutaneous Approach (ICD-10-PCS; 2018-02-12)
DX: A41.9 Sepsis, unspecified organism (principal); E43 Unspecified severe protein-calorie malnutrition; J18.1 Lobar pneumonia, unspecified organism; J96.21 Acute and chronic respiratory failure with hypoxia; R18.8 Other ascites; I31.3 Pericardial effusion (noninflammatory); E87.1 Hypo-osmolality and hyponatremia; C25.9 Malignant neoplasm of pancreas, unspecified; J44.0 Chronic obstructive pulmonary disease with (acute) lower respiratory infection; J44.1 Chronic obstructive pulmonary disease with (acute) exacerbation; J90 Pleural effusion, not elsewhere classified; F10.239 Alcohol dependence with withdrawal, unspecified; C77.4 Secondary and unspecified malignant neoplasm of inguinal and lower limb lymph nodes; Z51.5 Encounter for palliative care; R73.9 Hyperglycemia, unspecified; D53.9 Nutritional anemia, unspecified; F17.200 Nicotine dependence, unspecified, uncomplicated; I10 Essential (primary) hypertension; M06.9 Rheumatoid arthritis, unspecified; Z66 Do not resuscitate; Z90.710 Acquired absence of both cervix and uterus; Z80.41 Family history of malignant neoplasm of ovary; Z81.8 Family history of other mental and behavioral disorders; Z99.81 Dependence on supplemental oxygen; Z82.3 Family history of stroke; Z68.25 Body mass index [BMI] 25.0-25.9, adult; Z88.2 Allergy status to sulfonamides; Z82.0 Family history of epilepsy and other diseases of the nervous system; Z98.41 Cataract extraction status, right eye
CPT/HCPCS: 36415; 36600; 38505; 71045; 71046; 71275; 74177; 76942; 80048; 80053; 80061; 81001; 82040; 82272; 82378; 82533; 82607; 82728; 82803; 83036; 83540; 83550; 83605; 83690; 83735; 83880; 84100; 84145; 84439; 84443; 84481; 84484; 85025; 85610; 85730; 86301; 86850; 86900; 86923; 87040; 87070; 87086; 87205; 88305; 93005; 93308; 93321; 93325; 94640; 99285; G0378; J0696; J2543; J3010; J3411; J3475; J3480; J7042; J7620; J7626; P9047; Q9967; C9113; J1940; J2310; J2930; J7512; P9040